=== PATIENT | female | born 2000 | race African-American/Black ===

== ENCOUNTER 2021-11-23 16:17 | Emergency (ER) | payer OTHER ==
[2021-11-23 16:30] VITALS: BP 109/58
--- NOTE | 2021-11-23 16:59 | ED Physician Documentation ---
PD HPI HEENT - Stated complaint Stated Complaint: FEVER - Chief complaint Chief Complaint: Heent - History obtained from History obtained from: Patient - History of Present Illness Timing - onset: How many weeks ago (3) - Additional information Additional information: 21-year-old female with no reported past medical history presents for 3 weeks of right ear pain, sinus congestion. Patient states that she was treated with amoxicillin, and she initially got a little bit better, however her ear pain and sinus congestion have gotten much worse since then. Reports intermittent fevers and sore throat. No medications taken at home for symptoms other than the amoxicillin which she has completed. at home is sick with a viral illness the last 2 days. Review of Systems Constitutional: reports: Fever, Chills. denies: Fatigue, Weight Loss Eyes: denies: Loss of vision, Decreased vision, Photophobia Ears: reports: Ear pain. denies: Loss of hearing, Drainage/discharge, Tinnitus/ringing Nose: reports: Congestion. denies: Epistaxis, Foreign Body Throat: reports: Sore throat. denies: Dental pain / toothache Cardiac: denies: Chest pain / pressure, Palpitations Respiratory: denies: Dyspnea, Cough GI: denies: Abdominal Pain, Abdominal Swelling, Nausea, Vomiting, Constipation : denies: Dysuria, Frequency, Now EGA Skin: denies: Rash, Lesions Musculoskeletal: denies: Neck pain, Back pain, Extremity pain Neurologic: denies: Generalized weakness, Focal weakness PD PAST MEDICAL HISTORY - Past Medical History Past Medical History: No - Past Surgical History Past Surgical History: No - Present Medications Home Medications: Ambulatory Orders Medication Instructions Recorded Confirmed Amox/Clav 875/125 [Augmentin] 1 each PO Q12H #28 tablet 11/23/21 Oxymetazoline HCl [Afrin] 1 spray CARLOS BID #30 ml 11/23/21 Pseudoeph/Dm/Guaifen/Acetamin 1 each PO BID #30 tablet 11/23/21 [Duraflu 462-87-052-60 mg Tab] - Allergies Allergies/Adverse Reactions: Allergies Allergy/AdvReac Type Severity Reaction Status Date / Time No Known Drug Allergies Allergy Verified 11/23/21 16:30 - Social History Does the pt smoke?: No Smoking Status: Never smoker Does the pt drink ETOH?: Yes Does the pt have substance abuse?: No - Immunizations Immunizations are current?: Yes - POLST Patient has POLST: No PD ED PE NORMAL - Vitals Vital signs reviewed: Yes - General General: Alert and oriented X 3, No acute distress, Well developed/nourished, Other - HEENT HEENT: Atraumatic, PERRL, EOMI, Moist mucous membranes, Pharynx benign, Dentition benign, Other (R BULGING TM, BILATERAL SINUS TTP WITH ERYTHEMATOUS NASAL MUCOSA) - Neck Neck: Supple, no meningeal sign, No bony TTP, No adenopathy, Thyroid normal, No JVD, No bruit, C-Spine cleared by NEXUS criteria, Other - Cardiac Cardiac: RRR, No murmur, Strong equal pulses - Respiratory Respiratory: No respiratory distress, Clear bilaterally - Abdomen Abdomen: Soft, Non tender, Non distended - Female Female : Deferred - Back Back: No CVA TTP, No spinal TTP - Derm Derm: Normal color, No rash - Extremities Extremities: No deformity, No tenderness to palpate, Normal ROM s pain, No edema - Neuro Neuro: Alert and oriented X 3, die repairer trimmer dies 2-12 intact, No motor deficit, No sensory deficit, Normal speech - Psych Psych: Normal mood, Normal affect Results - Vitals Vitals: Vital Signs - 24 hr 11/23/21 16:26 Temperature 36.5 C Heart Rate 65 Respiratory 16 Rate Blood Pressure 109/58 L O2 Saturation 99 Oxygen O2 Source Room air - Labs Labs: Laboratory Tests 11/23/21 16:45 Nasal Adenovirus (PCR) NOT DETECTED Nasal B. parapertussis DNA (PCR) NOT DETECTED Nasal Coronavir 229E PCR NOT DETECTED Nasal Coronavir HKU1 PCR NOT DETECTED Nasal Coronavir NL63 PCR NOT DETECTED Nasal Coronavir OC43 PCR NOT DETECTED Nasal Enterovir/Rhinovir PCR NOT DETECTED Nasal Influenza B PCR NOT DETECTED Nasal Influenza A PCR NOT DETECTED Nasal Parainfluen 1 PCR NOT DETECTED Nasal Parainfluen 2 PCR NOT DETECTED Nasal Parainfluen 3 PCR NOT DETECTED Nasal Parainfluen 4 PCR NOT DETECTED Nasal RSV (PCR) NOT DETECTED Nasal B.pertussis DNA PCR NOT DETECTED Nasal C.pneumoniae (PCR) NOT DETECTED Carlos Human Metapneumo PCR NOT DETECTED Nasal M.pneumoniae (PCR) NOT DETECTED Nasal SARS-CoV-2 (PCR) DETECTED A PD MEDICAL DECISION MAKING - ED course Complexity details: reviewed results, re-evaluated patient, considered d ifferential, d/w patient ED course: Patient is well-appearing with persistent sinus congestion and otitis media. Since patient appears to have rebound sinusitis concern is for bacterial process. Given that partner is sick at home with viral symptoms will also test for COVID-19. Patient found to be COVID-19 positive. We will still treat for bacterial sinusitis and otitis media. Given rx for decongestants, antibiotics. For COVID 19 counseled fluids, tylenol/motrin for fever/pain, and plenty of rest. Departure - Departure Disposition: 01 Home, Self Care Clinical Impression: Bacterial sinusitis, COVID-19 Otitis media Qualifiers: Otitis media type: suppurative Chronicity: acute Laterality: right Recurrence: non-recurrent Spontaneous tympanic membrane rupture: with spontaneous rupture Qualified Code(s): H66.011 - Acute suppurative otitis media with spontaneous rupture of ear drum, right ear Condition: Good Instructions: ED Sinusitis Abx Tx Prescriptions: Oxymetazoline HCl [Afrin] 1 spray CARLOS BID #30 ml Amox/Clav 875/125 [Augmentin] 1 each PO Q12H #28 tablet Pseudoeph/Dm/Guaifen/Acetamin [Duraflu 651-01-469-60 mg Tab] 1 each PO BID #30 tablet Discharge Date/Time: 11/23/21 17:27
[2021-11-23 17:53] LABS: CORONAVIRUS 229E-RESP PCR NOT DETECTED; CORONAVIRUS HKU1-RESP PCR NOT DETECTED; CORONAVIRUS NL63-RESP PCR NOT DETECTED; CORONAVIRUS OC43-RESP PCR NOT DETECTED
[2021-11-23 17:55] LABS: B. PARAPERTUSSIS- RESP PCR PAN NOT DETECTED; B. PERTUSSIS- RESP PCR PANEL NOT DETECTED; C. PNEUMONIAE- RESP PCR PANEL NOT DETECTED; HUMAN METAPNEUMOVIRUS NOT DETECTED; INFLUENZA A- RESP PCR PANEL NOT DETECTED; INFLUENZA B - RESP PCR PANEL NOT DETECTED; M. PNEUMONIAE- RESP PCR PANEL NOT DETECTED; PARAINFLUENZA VIRUS 1 NOT DETECTED; PARAINFLUENZA VIRUS 2 NOT DETECTED; PARAINFLUENZA VIRUS 3 NOT DETECTED; PARAINFLUENZA VIRUS 4 NOT DETECTED; RHINOVIRUS/ENTEROVIRUS NOT DETECTED; RSV- RESP PCR PANEL NOT DETECTED; SARS-CoV-2 -RESP PCR PANEL DETECTED
== END 2021-11-23 17:27 | disposition home or self-care (01) ==
LOC: ED 16:17
DX: U07.1 COVID-19 (principal); J32.8 Other chronic sinusitis; H66.011 Acute suppurative otitis media with spontaneous rupture of ear drum, right ear
CPT/HCPCS: 87633; 99282; 99283

== ENCOUNTER 2022-04-02 22:16 | Emergency (ER) | payer OTHER ==
[2022-04-02 22:28] VITALS: BP 108/70
== END 2022-04-02 23:53 | disposition left against medical advice (07) ==
LOC: ED 22:16
DX: Z53.21 Procedure and treatment not carried out due to patient leaving prior to being seen by health care provider (principal)